=== PATIENT | male | born 1980 | race Two or more races ===

== ENCOUNTER 2019-02-11 17:14 | Emergency (ER) | payer MEDICARE, OTHER ==
[~2019-02-11] VITALS: Ht 170.2 cm; Wt 117.9 kg
[2019-02-11 20:28] VITALS: BP 114/67
[2019-02-11] MEDS ORDERED: cefTRIAXone SOD 1,000 MG VL IM ONE (20:45)
== END 2019-02-11 21:34 | disposition home or self-care (01) ==
LOC: ER 17:14
DX: N43.3 Hydrocele, unspecified (principal)
CPT/HCPCS: 76870; 96372; 99284; J0696

== ENCOUNTER 2019-05-22 12:00 | Emergency (ER) | payer MEDICARE, OTHER ==
[~2019-05-22] VITALS: Ht 170.2 cm; Wt 119.9 kg
[2019-05-22 13:02] VITALS: BP 134/78
[2019-05-22 13:22] LABS: Basophils # (auto) 0 uL; Basophils % (auto) 0.4 % (0.0-2.0); Eosinophils # (auto) 0 uL; Eosinophils % (auto) 0.1 % (0.0-7.0); Hematocrit 42.9 % (41.0-53.0); Hemoglobin 14.3 g/dL (13.5-17.5); Lymphocytes # (auto) 4.8 uL; Lymphocytes % (auto) 40.8 % (10.0-50.0); Mean Corpuscular Hemoglobin 28.6 pg (28.0-32.0); Mean Corpuscular Hgb Conc. 33.2 g/dL (32.0-36.0); Monocytes # (auto) 0.6 uL; Monocytes % (auto) 5.4 % (0.0-12.0); Neutrophils # (auto) 6.3 uL; Neutrophils % (auto) 53.3 % (37.0-80.0); Nucleated Red Blood Cells % 0.1 %; Platelet Count (auto) 148 10^3/uL (140-450); Red Blood Cells 4.99 10^6/uL (4.5-5.90); Red Cell Distribution Width 14.9 % (11.8-14.3); White Blood Cell 11.8 10^3/uL (4.4-10.8)
[2019-05-22 13:25] LABS: Urine Bacteria NONE SEEN /hpf (None Seen); Urine Blood Negative /uL (Negative); Urine Specific Gravity 1.006 (1.001-1.035); Urine WBC 1 /hpf (0 - 3)
[2019-05-22 13:37] LABS: INR 1.11 (0.9-1.15); Partial Thromboplastin Time 26.5 sec (23.64-32.05)
[2019-05-22 13:40] LABS: Albumin 3.9 g/dL (3.4-5.0); BUN/Creatinine Ratio 10.9; Calcium 9.9 mg/dL (8.5-10.1)
[2019-05-22 13:43] LABS: Bilirubin, Total 0.4 mg/dL (0.2-1.0)
== END 2019-05-22 14:23 | disposition home or self-care (01) ==
LOC: ER 12:03
DX: K64.9 Unspecified hemorrhoids (principal); K29.70 Gastritis, unspecified, without bleeding; E11.649 Type 2 diabetes mellitus with hypoglycemia without coma; F17.210 Nicotine dependence, cigarettes, uncomplicated
CPT/HCPCS: 36415; 74176; 80053; 81001; 82962; 85025; 85610; 85730

== ENCOUNTER 2021-07-14 14:40 | Emergency (ER) | payer MEDICARE, OTHER ==
[~2021-07-14] VITALS: Ht 170.2 cm; Wt 122.1 kg
[2021-07-14] MEDS ORDERED: methylPREDNISolone SOD SUCC 125 MG/2 ML VL IM ONE (15:15)
[2021-07-14] MEDS ORDERED: PANT40TA2 PO (17:09)
[2021-07-14] MEDS ORDERED: PRED1PAK9 PO (17:09)
[2021-07-14 17:18] VITALS: BP 114/87
== END 2021-07-14 17:18 | disposition home or self-care (01) ==
LOC: ER 14:40
DX: G51.0 Bell's palsy (principal); E11.9 Type 2 diabetes mellitus without complications; E78.5 Hyperlipidemia, unspecified; I10 Essential (primary) hypertension; F17.210 Nicotine dependence, cigarettes, uncomplicated
CPT/HCPCS: 70450; 96372; 99284; J2930

== ENCOUNTER 2023-09-02 15:26 | Inpatient (IN) | payer MEDICARE ==
[~2023-09-02] VITALS: Ht 170.2 cm; Wt 111.0 kg
[~2023-09-02 15:26] MED LIST: PANT40TA2 PO; PRED1PAK9 PO
[2023-09-02 16:38] LABS: Basophils # (auto) 0 10 ^3/uL (0-0.2); Basophils % (auto) 0.2 % (0.0-2.0); Eosinophils # (auto) 0.2 10 ^3/uL (0-0.8); Eosinophils % (auto) 1.8 % (0.0-7.0); Hematocrit 43.4 % (41.0-53.0); Hemoglobin 14.9 g/dL (13.5-17.5); Lymphocytes # (auto) 5.4 10 ^3/uL (0.4-5.4); Lymphocytes % (auto) 40.9 % (10.0-50.0); Mean Corpuscular Hemoglobin 31.2 pg (28.0-32.0); Mean Corpuscular Hgb Conc. 34.3 g/dL (32.0-36.0); Mean Corpuscular Volume 91.1 fL (80.0-100.0); Monocytes # (auto) 0.6 10 ^3/uL (0-1.3); Monocytes % (auto) 4.3 % (0.0-12.0); Neutrophils % (auto) 52.8 % (37.0-80.0); Nucleated Red Blood Cells % 0.1 %; Red Blood Cells 4.77 10^6/uL (4.5-5.90); Red Cell Distribution Width 13.8 % (11.8-14.3); White Blood Cell 13.2 10^3/uL (4.4-10.8)
[2023-09-02 16:57] LABS: INR 1.04 (0.9-1.15); Partial Thromboplastin Time 29.3 SEC (24.5-34.5); Prothrombin Time 10.9 sec (9.3-11.8)
[2023-09-02 17:04] LABS: Alanine Aminotransferase 23 U/L (7-40); Albumin 4.8 g/dL (3.2-4.8); Alkaline Phosphatase 46 U/L (46-116); Anion Gap 3 (5-15); Aspartate Aminotransferase 20 U/L (13-40); Carbon Dioxide 30 mmol/L (20-30); Chloride 109 mmol/L (98-107); Glucose 86 mg/dL (74-106); Sodium 142 mmol/L (136-145)
[2023-09-02 17:05] LABS: Bilirubin, Total 0.4 mg/dL (0.2-1.0); Total Protein 7.1 g/dL (5.7-8.2)
[2023-09-02 17:06] LABS: BUN/Creatinine Ratio 4.6 (10.0-20.0); Blood Urea Nitrogen < 5 mg/dL (9-23)
[2023-09-02] MEDS: IOHEXOL 350 MG/ML 100ML IJ ONE (17:24)
[2023-09-02 18:24] LABS: Acetaminophen < 2.0 UG/ML (10.0-20.0)
[2023-09-02 18:39] LABS: Salicylate < 3.0 mg/dL (2.8-20.0)
[2023-09-02] MEDS ORDERED: DOCUSATE SOD 100 MG CAP PO PRN (19:00)
[2023-09-02] MEDS ORDERED: MORPHINE SULFATE INJ 2 MG/ml SYRG IV PRN (19:00)
[2023-09-02] MEDS ORDERED: DEXTROSE (50%) 50ML SYRG IV PRN (19:00)
[2023-09-02] MEDS ORDERED: NITROGLYCERIN 0.4 MG SL TAB SL PRN (19:00)
[2023-09-02] MEDS ORDERED: ACETAMINOPHEN 325 MG TAB PO PRN (19:00)
[2023-09-02] MEDS ORDERED: [UNRECOGNIZED DRUG - CODE] IJ (19:46)
[2023-09-02] MEDS ORDERED: [UNRECOGNIZED DRUG - CODE] PO (19:46)
[2023-09-02] MEDS ORDERED: GABA-339 PO ×2 (19:46)
[2023-09-02] MEDS ORDERED: PANT40TA2 PO (19:46)
[2023-09-02] MEDS ORDERED: LITH300C3 PO (19:46)
[2023-09-02] MEDS ORDERED: DIVA250T12 PO (19:46)
[2023-09-02] MEDS ORDERED: METF-370 PO (19:46)
[2023-09-02] MEDS ORDERED: CLOZ200T4 PO (19:46)
[2023-09-02] MEDS ORDERED: [UNRECOGNIZED DRUG - CODE] PO (19:46)
[2023-09-02] MEDS ORDERED: ATOR10TA PO (19:46)
[2023-09-02] MEDS ORDERED: CLON-853 PO (19:46)
[2023-09-02] MEDS ORDERED: OMEP20TA PO (19:46)
[2023-09-02] MEDS ORDERED: TRAZ300T16 PO (19:46)
[2023-09-02] MEDS ORDERED: NALT50TA27 PO (19:46)
[2023-09-02] MEDS ORDERED: HYDR50TA69 PO ×2 (19:46)
[2023-09-02] MEDS ORDERED: MELA1TAB14 PO (19:46)
[2023-09-02] MEDS ORDERED: PRA1C PO (19:46)
[2023-09-02] MEDS ORDERED: SENN-58 PO (19:46)
[2023-09-02] MEDS: ASPirin-EC 325mg tab PO ONE (21:52)
[2023-09-02] MEDS: SODIUM CHLOR 0.9% PF (SALINE LOCK) 10ML VIAL/SYR IV SCH (22:03)
[2023-09-02] MEDS: ACCU-CHEK COMFORT CURVE STRIP VI SCH (22:14)
[2023-09-02] MEDS: InsuLIN REG 1unit/0.01ml Soln (100units/ml) SC SCH (22:18)
[2023-09-02 22:19] VITALS: PULSE 90; RESP 18; O2SAT 96
[2023-09-02 22:47] LABS: Amphetamine Screen, Urine Neg (NEGATIVE); Barbiturate Scree,Urine Neg (NEGATIVE); Benzodiazephine Screen, Urine Neg (NEGATIVE); Cannabinoid Screen, Urine Neg (NEGATIVE); Cocaine Screen, Urine Neg (NEGATIVE); Opiate Scree,Urine Neg (NEGATIVE); Phencyclidine Screen, Urine Neg (NEGATIVE); Urine Bacteria NONE SEEN /hpf (None Seen); Urine Blood Negative /uL (Negative); Urine Clarity Clear (Clear); Urine Color Yellow (Yellow); Urine Mucus FEW (None Seen); Urine Protein, UAD TRACE (Negative); Urine Specific Gravity 1.016 (1.001-1.035); Urine Urobilinogen Normal (Negative); Urine WBC 10 /hpf (0 - 3)
[2023-09-03 03:00] VITALS: PULSE 96; RESP 16; O2SAT 98
[2023-09-03 05:04] LABS: Basophils # (auto) 0 10 ^3/uL (0-0.2); Basophils % (auto) 0.2 % (0.0-2.0); Eosinophils # (auto) 0.3 10 ^3/uL (0-0.8); Eosinophils % (auto) 2.4 % (0.0-7.0); Hematocrit 43.4 % (41.0-53.0); Hemoglobin 14.9 g/dL (13.5-17.5); Lymphocytes # (auto) 5.5 10 ^3/uL (0.4-5.4); Lymphocytes % (auto) 45.6 % (10.0-50.0); Mean Corpuscular Hemoglobin 31.2 pg (28.0-32.0); Mean Corpuscular Hgb Conc. 34.2 g/dL (32.0-36.0); Mean Corpuscular Volume 91.2 fL (80.0-100.0); Monocytes # (auto) 0.5 10 ^3/uL (0-1.3); Monocytes % (auto) 4.5 % (0.0-12.0); Neutrophils # (auto) 5.7 10 ^3/uL (1.6-8.6); Neutrophils % (auto) 47.3 % (37.0-80.0); Red Blood Cells 4.77 10^6/uL (4.5-5.90); Red Cell Distribution Width 13.9 % (11.8-14.3); White Blood Cell 12.1 10^3/uL (4.4-10.8)
[2023-09-03 05:26] LABS: Alanine Aminotransferase 21 U/L (7-40); Albumin 4.9 g/dL (3.2-4.8); Alkaline Phosphatase 48 U/L (46-116); Anion Gap 5 (5-15); Aspartate Aminotransferase 18 U/L (13-40); Calcium 10.1 mg/dL (8.7-10.4); Carbon Dioxide 29 mmol/L (20-30); Chloride 107 mmol/L (98-107); Glucose 103 mg/dL (74-106); Potassium 3.6 mmol/L (3.5-5.1); Sodium 141 mmol/L (136-145)
[2023-09-03 05:27] LABS: Bilirubin, Total 0.5 mg/dL (0.2-1.0); Total Protein 7.5 g/dL (5.7-8.2)
[2023-09-03 05:33] LABS: BUN/Creatinine Ratio 5.4 (10.0-20.0); Blood Urea Nitrogen < 5 mg/dL (9-23)
[2023-09-03] MEDS: IOHEXOL 350 MG/ML 100ML IJ ONE (05:49)
[2023-09-03] MEDS: InsuLIN REG 1unit/0.01ml Soln (100units/ml) SC SCH (06:34)
[2023-09-03 07:30] VITALS: PULSE 80; RESP 80; O2SAT 80
[2023-09-03] MEDS: HYDROcodone-ACET 5/325MG TAB PO PRN (11:06)
[2023-09-03 17:55] VITALS: BP 137/88; PULSE 80; RESP 20; TEMP 97.5; O2SAT 100
[2023-09-03 18:36] VITALS: PULSE 80; RESP 20; O2SAT 100
[2023-09-03] MEDS ORDERED: GLYC1TAB18 PO (19:11)
[2023-09-03] MEDS ORDERED: LITH150C6 PO (19:11)
[2023-09-03 20:00] VITALS: PULSE 82; PULSE 84; RESP 20; O2SAT 96
[2023-09-03] MEDS: clonazePAM 0.5 MG TAB PO PRN (21:32)
[2023-09-03 22:00] VITALS: BP 115/76; PULSE 84; RESP 20; TEMP 97.8; O2SAT 96
[2023-09-03] MEDS: LITHIUM CARBONATE 300 MG TAB PO SCH (22:00)
[2023-09-03] MEDS: traZODone HCL 50 MG TAB PO SCH (22:07)
[2023-09-04 05:00] VITALS: BP 113/80; PULSE 74; RESP 19; TEMP 97.9; O2SAT 92
[2023-09-04 08:00] VITALS: PULSE 69; RESP 18; O2SAT 96
[2023-09-04 09:00] VITALS: BP 108/68; PULSE 67; RESP 18; TEMP 98.4; O2SAT 94
[2023-09-04] MEDS: LITHIUM CARBONATE 300 MG TAB PO SCH (11:04)
[2023-09-04 12:11] VITALS: TEMP 36.9
[2023-09-04 13:00] VITALS: BP 124/76; PULSE 70; RESP 16; TEMP 97.7; O2SAT 95
== END 2023-09-04 12:55 | disposition home or self-care (01) | DRG 100 ==
LOC: ER 15:26 → TELE 18:58 → TELE-CENTR 09-03 17:51
PROVIDERS: ADMIT Nurse Practitioner Family; ATTEND Family Medicine
DX: G40.201 Localization-related (focal) (partial) symptomatic epilepsy and epileptic syndromes with complex partial seizures, not intractable, with status epilepticus (principal); I63.9 Cerebral infarction, unspecified; R47.81 Slurred speech; R26.81 Unsteadiness on feet; E11.9 Type 2 diabetes mellitus without complications; F20.9 Schizophrenia, unspecified; I10 Essential (primary) hypertension; E78.5 Hyperlipidemia, unspecified; E66.9 Obesity, unspecified; G47.30 Sleep apnea, unspecified; Z68.38 Body mass index [BMI] 38.0-38.9, adult; H53.462 Homonymous bilateral field defects, left side; F43.10 Post-traumatic stress disorder, unspecified; F31.9 Bipolar disorder, unspecified; X58.XXXA Exposure to other specified factors, initial encounter; F17.210 Nicotine dependence, cigarettes, uncomplicated; Z79.82 Long term (current) use of aspirin; Z79.899 Other long term (current) drug therapy; Z81.8 Family history of other mental and behavioral disorders; Z83.3 Family history of diabetes mellitus
CPT/HCPCS: 36415; 70450; 70496; 70551; 80053; 80164; 80178; 80307; 80320; 80329; 81001; 82962; 84484; 85025; 85610; 85730; 93005; G0378; J1815